=== PATIENT | female | born 1980 ===

== ENCOUNTER 2017-03-29 01:10 | Emergency (ER) | payer MEDICAID, OTHER ==
[2017-03-29 01:11] VITALS: BMI 22.6
[2017-03-29 02:06] LABS: BASO # 0.1 K/uL (0.0-0.2); BASO % 0.8 % (0.0-2.0); EOS # 0.2 K/uL (0.0-0.7); EOS % 2.3 % (0.0-4.0); HEMATOCRIT 37.5 % (34.0-47.0); LYMPH # 3.9 K/uL (1.0-4.3); LYMPH % 46.2 % (20.0-40.0); MEAN CORPUSCULAR HEMOGLOBIN 30.5 pg (27.0-31.0); MEAN CORPUSCULAR HGB CONC 32.8 g/dL (33.0-37.0); MEAN PLATELET VOLUME 7.9 fL (7.2-11.7); MONO # 0.6 K/uL (0.0-0.8); MONO % 7.2 % (0.0-10.0); NRBC % 0.2 % (0.0-2.0); RED CELL DISTRIBUTION WIDTH 14.6 % (11.5-14.5); WHITE BLOOD COUNT 8.4 K/uL (4.8-10.8)
[2017-03-29 02:12] LABS: CHLORIDE 104 mmol/L (98-107); POTASSIUM 3.2 mmol/L (3.6-5.2); SODIUM 139 mmol/L (132-148)
[2017-03-29 02:14] LABS: ALB/GLOB RATIO 1.2 (1.0-2.1); ALKALINE PHOSPHATASE 52 U/L (38-126); AST/SGOT 16 U/L (14-36); BILIRUBIN,TOTAL 0.1 mg/dL (0.2-1.3); CARBON DIOXIDE 22 mmol/L (22-30); GFR AFRICAN-AMERICAN > 60; TOTAL PROTEIN 6.6 g/dL (6.3-8.3)
[2017-03-29 02:15] LABS: ALT/SGPT 23 U/L (9-52); BLOOD UREA NITROGEN 18 mg/dL (7-17); CALCIUM 8.6 mg/dl (8.6-10.4); GLUCOSE,RANDOM 119 mg/dL (65-105)
[2017-03-29] MEDS ORDERED: Dexamethasone 4 mg/1 ml IVP STA (02:25)
[2017-03-29] MEDS ORDERED: Dexamethasone 4 mg/1 ml ONE (02:44)
[2017-03-29] MEDS ORDERED: Oxycodone/Acetaminophen 5/325 mg Tab PO STA (03:16)
[2017-03-29] MEDS ORDERED: Oxycodone/Acetaminophen 5/325 mg Tab ONE (03:29)
--- NOTE | 2017-03-29 04:01 | C.PDOC ---
History Of Present Illness 36 year old female presents to the ED with complaints of intermittent right lower back pain, right leg, and right arm cramping. Patient states she was seen two days prior in [facility] and was told, her :potassium is dangerously low." She notes she left against medical advice and has a history of "severe nerve damage." Patient has used a heating pad with no relief. She denies fever, nausea, vomiting, or other complaints at this time. Time Seen by Provider: 03/29/17 01:42 Chief Complaint (Nursing): Lower Extremity Problem/Injury History Per: Patient History/Exam Limitations: no limitations Onset/Duration Of Symptoms: Days, Intermittent Episodes Current Symptoms Are (Timing): Still Present Recent travel outside of the [place]: No Additional History Per: Prior Records Past Medical History Reviewed: Historical Data, Nursing Documentation, Vital Signs Vital Signs: Last Vital Signs Temp 98.4 F 03/29/17 04:03 Pulse 75 03/29/17 04:03 Resp 18 03/29/17 04:03 BP 92/62 L 03/29/17 04:03 Pulse Ox 97 03/29/17 06:23 - Medical History PMH: Asthma, Back Problems, Fibromyalgia, Fractures (left foot), HTN, Hypothyroidism, Migraine, Chronic Pain (neck, back, right leg) Surgical History: Back Surgery (Cervical spine Diskectomy and fusion C5-6) - [facility] Procedures FUSION CERV JT W INTBD FUS DEV, ANT APPR A COL, OPEN (07/22/15) INJECT/INFUSE NEC (02/14/15) INTRODUCE OF ANTI-INFLAM INTO EPIDURAL SPACE, PERC APPROACH (09/15/15) INTRODUCE OF LOCAL ANESTH INTO EPIDURAL SPACE, PERC APPROACH (09/15/15) RESECTION OF CERVICAL VERTEBRAL DISC, OPEN APPROACH (07/22/15) VACCINATION NEC (10/24/14) Family History: States: Unknown Family Hx, NC (maternal grandparents had NC in their 60s), Hypertension - Social History Hx Alcohol Use: No Hx Substance Use: No - Immunization History Hx Tetanus Toxoid Vaccination: No Hx Influenza Vaccination: No Hx Pneumococcal Vaccination: No Review Of Systems Constitutional: Negative for: Fever, Chills Cardiovascular: Negative for: Chest Pain, Palpitations Respiratory: Negative for: Cough, Shortness of Breath Gastrointestinal: Negative for: Nausea, Vomiting Genitourinary: Negative for: Dysuria, Hematuria Musculoskeletal: Positive for: Arm Pain (right arm cramping ), Back Pain (right lower back pain ), Leg Pain (right leg cramping ) Skin: Negative for: Rash Neurological: Negative for: Weakness, Numbness Physical Exam - Physical Exam Appears: Non-toxic, No Acute Distress Skin: Warm, Dry Head: Atraumatic, Normacephalic Eye(s): bilateral: Normal Inspection, PERRL, EOMI Oral Mucosa: Moist Neck: Supple Chest: Symmetrical, No Deformity Cardiovascular: Rhythm Regular, No Murmur Respiratory: Normal Breath Sounds, No Rales, No Rhonchi, No Wheezing Gastrointestinal/Abdominal: Soft, No Tenderness, No Distention, No Guarding, No Rebound Back: No Vertebral Tenderness, No Muscle Spasm, Paraspinal Tenderness ( paralumbar tenderness ), Straight Leg Raising Extremity: No Tenderness, No Pedal Edema, No Calf Tenderness, Capillary Refill ( good capillary refill, less than two seconds ), No Deformity, No Swelling Neurological/Psych: Oriented x3 ED Course And Treatment - Laboratory Results Result Diagrams: 03/29/17 02:01 03/29/17 02:01 O2 Sat by Pulse Oximetry: 97 (RA) Pulse Ox Interpretation: Normal Progress Note: Labs were ordered and patient was given Valium, Toradol, Decadron , and Percocet. On re-exam, the patient reports improvement of symptoms. Lungs are CTA, heart is RRR, abdomen is soft, non-tender and tolerating PO well. Ambulatory in the ED with steady gait. Follow up with the medical doctor within 1- 2 days without fail. return if worsened Disposition - Disposition Referrals: [facility] [Outside] Disposition: HOME/ ROUTINE Disposition Time: 03:58 Condition: GOOD Additional Instructions: Follow up with the medical doctor within 1-2 days. 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 - Scribe Statement The provider has reviewed the documentation as recorded by the Scribe Franchesca Gonzalez All medical record entries made by the Scribe were at my direction and personally dictated by me. I have reviewed the chart and agree that the record accurately reflects my personal performance of the history, physical exam, medical decision making, and the department course for this patient. I have also personally directed, reviewed, and agree with the discharge instructions and disposition.
[2017-03-29 04:05] VITALS: BP 92/62; PULSE 75; RESP 18; TEMP 98.4
[2017-03-29 06:20] VITALS: O2SAT 97
--- NOTE | 2017-03-31 19:16 | CARD ---
APPROVED REPORT EKG Measurement Heart [id number] <Conclusion> Normal sinus rhythm Normal ECG
== END 2017-03-29 04:14 | disposition home or self-care (01) ==
LOC: C.ER 01:10
DX: M54.5 Low back pain (principal); M79.7 Fibromyalgia; I10 Essential (primary) hypertension; F17.210 Nicotine dependence, cigarettes, uncomplicated
CPT/HCPCS: 80053; 85025; 96374; 99285; J1100